=== PATIENT | female | born 1970 | race Caucasian/White ===

== ENCOUNTER 2018-02-11 09:06 | Day surgery (SDC) | payer MEDICAID ==
[2018-02-03 15:25] LABS: BASOPHILS % (AUTO) 0.3 % (0-1); EOSINOPHILS # (AUTO) 0.1 X10'3 (0-0.9); EOSINOPHILS % (AUTO) 1.4 % (0-6); LYMPHOCYTES # (AUTO) 2.2 X10'3 (1.1-4.8); LYMPHOCYTES % (AUTO) 28.5 % (21-51); MEAN CORPUSCULAR HEMOGLOBIN 29.3 PG (27.0-31.0); MEAN CORPUSCULAR HGB CONC 34.7 % (33.0-36.5); MEAN CORPUSCULAR VOLUME 84.6 FL (78-98); MEAN PLATELET VOLUME 8.8 FL (7.4-10.4); MONOCYTES # (AUTO) 0.4 X10'3 (0-0.9); MONOCYTES % (AUTO) 5.1 % (2-12); NEUTROPHILS % (AUTO) 64.7 % (42-75); PRE OP HEMATOCRIT 36.1 % (35.0-45.0); PRE OP HEMOGLOBIN 12.5 g/dL (12.0-16.0); PRE OP PLATELET COUNT 190 X10'3 (140-440); RED BLOOD COUNT 4.27 X10'6 (4.20-5.60); RED CELL DISTRIBUTION WIDTH 12.4 % (11.5-14.5)
[2018-02-03 15:50] LABS: ALBUMIN 3.3 G/DL (3.4-5.0); ALKALINE PHOSPHATASE 96 IU/L (46-116); BLOOD UREA NITROGEN 16 MG/DL (7-18); BUN/CREATININE RATIO 16.7 (6.6-38.0); CALCIUM 8.5 MG/DL (8.5-10.1); CHLORIDE 107 MMOL/L (99-107); CREATININE 0.96 MG/DL (0.40-0.90); PRE OP ALT 23 U/L (30-65); PRE OP ANION GAP 8 (8-16); PRE OP AST 18 U/L (10-37); PRE OP BILIRUB, TOTAL 0.2 MG/DL (0.0-1.0); PRE OP GLUCOSE 100 MG/DL (70-104); PRE OP POTASSIUM 3.8 MMOL/L (3.4-5.1); PRE OP SODIUM 142 MMOL/L (135-145); TOTAL PROTEIN 6.5 G/DL (6.4-8.2); eGFR 62 ML/MIN
[2018-02-11] VITALS (9 sets, daily range): BP systolic 150–172; BP diastolic 78–95
[~2018-02-11] VITALS: Ht 162.6 cm; Wt 107.7 kg
[~2018-02-11 09:06] MED LIST: ALBU18HF2 INH; BECL7.3A INH; CLON0.1T PO; ESCI20TA38 PO; FURO-150 PO; MELO-100 PO; METH54TA12 PO; OXYC-138 PO; PANT-47 PO; TAMO10TA4 PO; clindamycin-Cleocin 900mg/D5W 50 ML IV ONE; famotidine 20mg tablet PO ONE; ringers solution, lacted 1,000 ML IV SCH
[2018-02-11] MEDS ORDERED: sevoflurane 250ml liquid IH ONE (11:16)
[2018-02-11] MEDS ORDERED: ondansetron/PF 4mg/2ml inj ONE (11:16)
[2018-02-11] MEDS ORDERED: midazolam 2 mg/2 ml injection ONE (11:22)
[2018-02-11] MEDS ORDERED: fentaNYL /PF 50mcg/ml 5ml ampule ONE (11:24)
[2018-02-11] MEDS ORDERED: LIDOcaine 2% (20mg/ml) 5ml vial ONE (11:25)
[2018-02-11] MEDS ORDERED: propofol inj 20 ML IV ONE (11:25)
[2018-02-11] MEDS ORDERED: dexamethasone sod phosphate 4mg/ml inj. ONE (11:32)
[2018-02-11] MEDS ORDERED: BUPIVAcaine/PF 2.5mg/ml (0.25%) 10ml vial ONE (11:55)
[2018-02-11] MEDS ORDERED: triamcinolone acetonide 40mg/ml inj ONE (11:55)
[2018-02-11] MEDS ORDERED: ringers solution, lacted 1,000 ML IV SCH (11:58)
[2018-02-11] MEDS ORDERED: proCHLORperazine 10 MG/2 ml inj IV PRN (12:00)
[2018-02-11] MEDS ORDERED: morphine 4 MG/ML inj SYRINge IV PRN ×2 (12:00)
[2018-02-11] MEDS ORDERED: meperidine/PF 25mg/ml syringe IV PRN ×3 (12:00)
[2018-02-11] MEDS ORDERED: ondansetron/PF 4mg/2ml inj IV PRN (12:00)
[2018-02-11] MEDS ORDERED: HYDROcodone/acetaminophen 10/325mg tab PO ONE (12:50)
== END 2018-02-11 13:40 | disposition home or self-care (01) ==
LOC: PAS 09:06
PROVIDERS: ATTEND Orthopaedic Surgery
DX: M23.221 Derangement of posterior horn of medial meniscus due to old tear or injury, right knee (principal); M23.231 Derangement of other medial meniscus due to old tear or injury, right knee; M22.41 Chondromalacia patellae, right knee; M25.861 Other specified joint disorders, right knee; F90.8 Attention-deficit hyperactivity disorder, other type; K21.9 Gastro-esophageal reflux disease without esophagitis; I10 Essential (primary) hypertension; M17.12 Unilateral primary osteoarthritis, left knee; F32.89 Other specified depressive episodes; E66.01 Morbid (severe) obesity due to excess calories; I44.7 Left bundle-branch block, unspecified; J44.9 Chronic obstructive pulmonary disease, unspecified; G89.29 Other chronic pain; Z68.41 Body mass index [BMI] 40.0-44.9, adult; Z91.041 Radiographic dye allergy status; Z88.0 Allergy status to penicillin; Z91.012 Allergy to eggs; Z79.891 Long term (current) use of opiate analgesic; Z88.1 Allergy status to other antibiotic agents; Z88.6 Allergy status to analgesic agent; Z88.5 Allergy status to narcotic agent; Z88.3 Allergy status to other anti-infective agents; Z88.2 Allergy status to sulfonamides; Z90.89 Acquired absence of other organs; Z87.891 Personal history of nicotine dependence; Z91.018 Allergy to other foods; Z91.048 Other nonmedicinal substance allergy status; Z79.899 Other long term (current) drug therapy; Z88.8 Allergy status to other drugs, medicaments and biological substances; Z98.890 Other specified postprocedural states
CPT/HCPCS: 29873; 29880; 36415; 80053; 85025; 85610; 85730; 93005; A6449; J1100; J2001; J2250; J2405; J2704; J3010; J3301; J3490; J7030; J7120; A6250; A7000

== ENCOUNTER 2019-06-01 10:30 | Day surgery (SDC) | payer MEDICAID ==
[2019-05-31 12:12] LABS: BASOPHILS % (AUTO) 0.3 % (0-1); EOSINOPHILS % (AUTO) 0.3 % (0-6); HEMATOCRIT 36.5 % (35.0-45.0); HEMOGLOBIN 12.5 g/dl (12.0-16.0); LYMPHOCYTES # (AUTO) 0.9 X10'3 (1.1-4.8); MEAN CORPUSCULAR HEMOGLOBIN 29.1 PG (27.0-31.0); MEAN CORPUSCULAR HGB CONC 34.2 g/dL (33.0-36.5); MEAN CORPUSCULAR VOLUME 85.2 FL (78-98); MEAN PLATELET VOLUME 7.7 FL (7.4-10.4); MONOCYTES # (AUTO) 0.2 X10'3 (0-0.9); MONOCYTES % (AUTO) 1.9 % (2-12); NEUTROPHILS # (AUTO) 7.5 X10'3 (1.8-7.7); NEUTROPHILS % (AUTO) 87.5 % (42-75); PARTIAL THROMBOPLASTIN TIME 26 SECONDS (22-32); PLATELET COUNT 200 X10'3 (140-440); RED BLOOD COUNT 4.28 X10'6 (4.20-5.60); RED CELL DISTRIBUTION WIDTH 13.6 % (11.5-14.5); WHITE BLOOD COUNT 8.6 X10'3 (4.5-11.0)
[2019-05-31 12:13] LABS: ALANINE AMINOTRANSFERASE 29 U/L (12-78); ALBUMIN 3.5 G/DL (3.4-5.0); ALBUMIN/GLOBULIN RATIO 1.1 (1.1-1.5); ALKALINE PHOSPHATASE 100 IU/L (46-116); ANION GAP 4 (8-16); ASPARTATE AMINO TRANSFERASE 27 U/L (10-37); BILIRUBIN,TOTAL 0.3 MG/DL (0.1-1.0); BLOOD UREA NITROGEN 16 MG/DL (7-18); BUN/CREATININE RATIO 17.6 (6.6-38.0); CALCIUM 8.7 MG/DL (8.5-10.1); CHLORIDE 105 MMOL/L (99-107); CREATININE 0.91 MG/DL (0.40-0.90); GLUCOSE 127 MG/DL (70-104); POTASSIUM 3.5 MMOL/L (3.5-5.1); SODIUM 140 MMOL/L (135-145); TOTAL CARBON DIOXIDE 31.1 MMOL/L (24-32); TOTAL PROTEIN 6.7 G/DL (6.4-8.2); eGFR 66 ML/MIN
[~2019-06-01] VITALS: Ht 162.6 cm; Wt 109.0 kg
[2019-06-01] VITALS (9 sets, daily range): BP systolic 114–136; BP diastolic 64–79
[~2019-06-01 10:30] MED LIST changes: -clindamycin-Cleocin 900mg/D5W 50 ML IV ONE; -famotidine 20mg tablet PO ONE; -ringers solution, lacted 1,000 ML IV SCH
[2019-06-01] MEDS ORDERED: LORazepam 0.5 MG tablet PO PRN (10:50)
[2019-06-01] MEDS ORDERED: normal saline 1,000 ML IV SCH (10:50)
[2019-06-01] MEDS ORDERED: nitroGLYCERIN 0.4mg SUBLingual tab SL PRN ×2 (10:50→13:25)
[2019-06-01] MEDS ORDERED: diphenhydrAMINE 25mg capsule PO PRN (10:50)
[2019-06-01] MEDS ORDERED: methylPREDNISolone sod succ 125mg/2ml vial IV ONE (10:55)
[2019-06-01] MEDS ORDERED: MAGN400T28 PO (11:04)
[2019-06-01] MEDS ORDERED: ESCI10TA PO (11:04)
[2019-06-01] MEDS ORDERED: EPIN0.3P3 (11:04)
[2019-06-01] MEDS ORDERED: OMEG1CAP21 PO (11:04)
[2019-06-01] MEDS ORDERED: DIPH25CA83 PO (11:04)
[2019-06-01] MEDS ORDERED: iohexol 350MG/ML 100ml bottle IV ONE (12:18)
[2019-06-01] MEDS ORDERED: LIDOcaine 1% (10mg/ml)w/preservative injection 20ml MDV ONE (12:18)
[2019-06-01] MEDS ORDERED: midazolam 2 mg/2 ml injection ONE ×2 (12:18→12:44)
[2019-06-01] MEDS ORDERED: fentaNYL/PF 50MCG/1 ML 2ML syringe ONE (12:18)
[2019-06-01] MEDS ORDERED: iohexol 350 MG/ML 50ML vial IV ONE (12:18)
[2019-06-01] MEDS ORDERED: proCHLORperazine 10 MG/2 ml inj IV PRN (13:25)
[2019-06-01] MEDS ORDERED: OXAZEpam 15mg capsule PO PRN (13:25)
[2019-06-01] MEDS ORDERED: normal saline 1000ml 1,000 ML IV SCH (13:25)
[2019-06-01] MEDS ORDERED: ondansetron/PF 4mg/2ml inj IV PRN (13:25)
[2019-06-01] MEDS ORDERED: oxyCODONE IR 5mg (immed. release) tablet PO ONE (16:00)
== END 2019-06-01 19:05 | disposition home or self-care (01) ==
LOC: SSTAY O 10:30
PROVIDERS: ATTEND Internal Medicine Cardiovascular Disease
DX: R94.39 Abnormal result of other cardiovascular function study (principal); I10 Essential (primary) hypertension; E78.5 Hyperlipidemia, unspecified; J44.9 Chronic obstructive pulmonary disease, unspecified; Z79.899 Other long term (current) drug therapy
CPT/HCPCS: 36415; 71046; 80053; 85025; 85610; 85730; 93458; 99152; C1769; J1644; J2001; J2250; J2930; J3010; J7030; Q0163; Q9967; A4620; A6258; C1760

== ENCOUNTER 2025-02-03 11:23 | Emergency (ER) | payer MEDICAID ==
[~2025-02-03] VITALS: Ht 162.6 cm; Wt 109.1 kg
[~2025-02-03 11:23] MED LIST changes: +DIPH25CA83 PO; +EPIN0.3P3; +ESCI10TA PO; -ESCI20TA38 PO; +MAGN400T56 PO; +OMEG1CAP21 PO; +TAMO10TA14 PO; -TAMO10TA4 PO
--- NOTE | 2025-02-03 11:26 | Physician Documentation ---
History of Present Illness General Stated Complaint: CHEST PRESSURE Time Seen by MD: 11:26 Primary Medical Doctor: [facility] History of Present Illness Initial Comments The patient is a 54-year-old female with a history of CHF who presents with a complaint of rapid heart rate and shortness of breath and chest tightness. Patient states around 10 30 she noticed chest tightness and rapid heart rate. She states she does not normally get chest tightness. She states she has a history of CHF and that she has been off her Lasix and her clonidine over the last week. Patient states she has had stress tests in the past. The patient denies any fevers or chills nausea or vomiting she does complain of slight shortness of breath. Patient's symptoms are mild to moderate and persistent. Medication Reconciliation Allergies: Coded Allergies: Iodinated Contrast Media (Verified Allergy, Severe, THROAT SWELLING, 02/03/25) Penicillins (Verified Allergy, Intermediate, RASH, 02/03/25) acetaminophen (Verified Allergy, Intermediate, RASH, 02/03/25) amitriptyline (Verified Allergy, Intermediate, RASH, 02/03/25) animal dander (Verified Allergy, Intermediate, RASH, 02/03/25) baclofen (Verified Allergy, Intermediate, RASH, 02/03/25) cefuroxime (Verified Allergy, Intermediate, 08/18/15) ciprofloxacin (Verified Allergy, Intermediate, RASH, 08/18/15) erythromycin base (Verified Allergy, Intermediate, RASH, 08/18/15) hydrocodone (Verified Allergy, Intermediate, RASH, 08/18/15) ibuprofen (Verified Allergy, Intermediate, RASH, 08/18/15) indomethacin (Verified Allergy, Intermediate, RSH, 08/18/15) sulfamethoxazole (Verified Allergy, Intermediate, RASH, 08/18/15) tramadol (Verified Allergy, Intermediate, RASH, 08/18/15) trazodone (Verified Allergy, Intermediate, RASH, 08/18/15) trimethoprim (Verified Allergy, Intermediate, RASH, 08/18/15) wheat (Verified Allergy, Mild, SORES ON SIDE OF MOUTH, 02/11/18) zolpidem (Verified Adverse Reaction, Severe, AMNESIA, 08/18/15) Uncoded Allergies: CARROTS (Allergy, Intermediate, WHEEEZING, 02/11/18) EGGS (Allergy, Intermediate, SWOLLEN LYMPH NODES, 02/11/18) CHICKEN (Adverse Reaction, Intermediate, SWOLLEN LYMPH NODES, 02/11/18) Scheduled Beclomethasone Dipropionate (Qvar 40 MCG INHALER), 2 PUFFS INH BID, (Reported) Clonidine HCl (Clonidine HCl), 1 TAB PO BID, (Reported) Clonidine HCl (Clonidine HCl), 1 TAB PO Q12H Diphenhydramine Hcl (Benadryl), 1 CAP PO TID, (Reported) Escitalopram Oxalate (Lexapro), 3 TAB PO DAILY, (Reported) Furosemide (Lasix), 1 TAB PO DAILY, (Reported) Furosemide* (Lasix*), 1 TAB PO DAILY Magnesium Oxide (Magnesium Oxide), 1 TAB PO DAILY, (Reported) Meloxicam* (Meloxicam*), 15 MG PO BID, (Reported) Methylphenidate HCl (Methylphenidate ER), 1 TAB PO DAILY, (Reported) Oxycodone HCl/Acetaminophen (Endocet 10-325 mg Tablet), 1 TAB PO TID PRN, (Reported) Pantoprazole Sodium (PROTONIX tablet), 40 MG PO DAILY, (Reported) Tamoxifen Citrate (Tamoxifen Citrate), 20 MG PO DAILY, (Reported) Scheduled PRN Albuterol Sulfate (Ventolin Hfa), 2 PUFFS INH Q4HPRN PRN for SOB or wheezing, (Reported) Epinephrine (Epipen 2-Gideon), for allergies, (Reported) Miscellaneous Medications Malone-3 Fatty Acids/Fish Oil (Malone 3 Fish Oil Softgel), 1 EACH PO, (Reported) Past Medical History Past Medical History: Congestive Heart Failure, Chronic Pain Review of Systems All Other Systems at this time: Reviewed and Negative Physical Exam Physical Exam Physical Exam VITALS: Reviewed and as above. GENERAL: Alert, no apparent distress. HEENT: Normocephalic, atraumatic, PERRL, EOMI, dry mucosa, no erythema RESPIRATORY: Lungs clear, normal breath sounds, no respiratory distress. CHEST: No accessory muscle use, no retractions CV: Tachycardic rate, rhythm, no edema, no murmur, No: JVD GI: Soft, non-tender, bowels sounds present, no rebound, guarding, or rigidity BACK: No CVA tenderness, or swelling MUSCULOSKELETAL: No deformities, no edema SKIN: Warm and dry, no rash NEURO: Oriented x4, No motor or sensory deficit PSYCH: Normal mood and affect, no agitation Progress Results/Orders Results/Orders Orders - OHHUSSAIN SANTOS MD Chest,Single View (02/03/25 11:32) Monitor (02/03/25 11:26) Saline Lock (02/03/25 11:26) Oxygen (02/03/25 11:26) Completed Orders - HUSSAIN LYONS MD Chest,Single View (02/03/25 11:32) Cbc/Diff (02/03/25 11:26) BMP (02/03/25 11:26) PBNP (02/03/25 11:26) Electrocardiogram (02/03/25 11:26) Hs Troponin I W Calculations (02/03/25 11:26) Hs Troponin I W Calculations (02/03/25 13:26) Drug Screen, Urine (02/03/25 13:30) Furosemide Inj (Lasix Inj) (02/03/25 14:15) Clonidine Tablet (Catapres Tablet) (02/03/25 14:15) Medications Received in ER Medications (Trade) Dose Ordered Sig/Shakeel Route PRN Reason Start Time Stop Time Status Last Admin Dose Admin (Lasix inj) 20 mg ONCE ONCE IV 02/03/25 14:15 02/03/25 14:16 DC 02/03/25 14:28 20 MG (Catapres tablet) 0.1 mg ONCE ONCE PO 02/03/25 14:15 02/03/25 14:16 DC 02/03/25 14:28 0.1 MG Vital Signs 02/03/25 02/03/25 02/03/25 02/03/25 11:23 11:42 12:11 14:08 Pulse 107 113 97 Resp 28 14 13 B/P (MAP) 175/94 130/70 (90) 124/74 (91) Pulse Ox 98 98 99 O2 Flow Rate 0 0 0 Laboratory Tests Test 02/03/25 11:35 02/03/25 11:55 02/03/25 13:30 White Blood Count 10.7 Red Blood Count 5.03 Hemoglobin 14.5 Hematocrit 42.0 Mean Corpuscular Volume 83.5 Mean Corpuscular Hemoglobin 28.8 Mean Corpuscular Hemoglobin Concent 34.5 Red Cell Distribution Width 13.9 Platelet Count 230 Mean Platelet Volume 8.1 Neutrophils (%) (Auto) 62.5 Lymphocytes (%) (Auto) 29.1 Monocytes (%) (Auto) 4.3 Eosinophils (%) (Auto) 3.6 Basophils (%) (Auto) 0.5 Neutrophils # (Auto) 6.7 Lymphocytes # (Auto) 3.1 Monocytes # (Auto) 0.5 Eosinophils # (Auto) 0.4 Basophils # (Auto) 0.1 CBC Comment Sodium Level 136 Potassium Level 3.5 Chloride Level 99 Carbon Dioxide Level 28.9 Anion Gap 8 Blood Urea Nitrogen 8 Creatinine 1.01 H Estimated GFR/1.73 m2 57 BUN/Creatinine Ratio 7.9 L Glucose Level 213 H Calcium Level 9.6 Troponin I High Sensitivity 9 9 Pro-B-Type Natriuretic Peptide 192 H Albumin 3.9 Chemistry Comments Urine Opiates Screen Negative Urine Methadone Screen Negative Urine Fentanyl Screen Negative Urine Barbiturates Screen Negative Urine Phencyclidine Screen Negative Urine Amphetamines Screen Negative Urine Benzodiazepines Screen Negative Urine Cocaine Screen Negative Urine Cannabinoids Screen Positive Drug Screen Comment Troponin I High Sens Percent Delta 0 Troponin I Hi Sens Absolute Change 0 EKG/XRAY/CT/US/VASC/MRI EKG : Additional Comment The patient's EKG was interpreted by myself and shows left axis deviation shows a sinus tach at a rate of 104 with left bundle-branch block and nonspecific ST abnormalities the EKGs interpreted as an abnormal EKG. Time of the EKG was 11 30 am Chest X-Ray : Additional Comments Patient: WES DARBY Medical Record: [id number] JOSEPH LONDON : 1970, Age: 54 Sex: Female Location: ER Patient Status: REG ER Service Date/Time: 02/03/251131 Ordering Physician: HUSSAIN LYONS MD Exam: CHEST,SINGLE VIEW DI CHEST,SINGLE VIEW, HISTORY: CP COMPARISON: None None TECHNICAL DATA: 1 view of the chest was obtained. FINDINGS: Lines and tubes: None Cardiomediastinal silhouette: normal Pulmonary vasculature: normal Lung expansion: normal Lung airspace: normal Lung interstitium: normal Pleura: normal Pneumothorax: no Bones: Unremarkable Other: no IMPRESSION: No acute intrathoracic abnormality. Electronically Signed by:CHEMO JONES MD Date & Time: 02/03/251202 Dictated by: CHEMO JONES MD Dictation date and time: 02/03/25 120 Primary Care Provider: NO PRIMARY CARE PROVIDER cc: HUSSAIN LYONS MD ~ Medical Decision Making Findings The patient's EKG was interpreted as a sinus tachycardia rate of 104 for with a left bundle branch block the patient's axis is left axis and there was nonspecific ST abnormalities impression is an abnormal EKG time of the EKG was 11 30. The patient's chest x-ray was interpreted by me as showing a normal cardiac silhouette normal mediastinum and normal-appearing lung oliveira and I interpreted the chest x-ray as being normal I have also reviewed the radiologist's impressions I have reviewed the previous hospitalizations I have reviewed the patient's labs I have interpreted the EKG the bedside monitor was interpreted as a sinus tachycardia and her pulse oximetry was interpreted as no rmal and adequate the patient has a benign exam. The patient will be discharged she will be placed back on her clonidine as well as her Lasix she has been advised to return for worsening of her symptoms. Her serial troponins were negative Departure Time of Disposition: 15:36 Disposition: 01 HOME / SELF CARE / HOMELESS Impression: Primary Impression: Tachycardia Discharge Instructions: Nonspecific Chest Pain, Adult Additional Instructions: You have prescriptions that has been sent to [facility] take her medicine as prescribed return for worsening of your symptoms follow up with her healthcare providers soon as possible Referrals: NO PRIMARY CARE PROVIDER (PCP) Prescriptions Clonidine HCl (Clonidine HCl) 0.2 Mg Tablet 1 TAB PO Q12H for 30 Days, #60 TAB 0 Refills Prov: HUSSAIN LYONS MD 02/03/25 Furosemide* (Lasix*) 20 Mg Tablet 1 TAB PO DAILY for 30 Days, #30 TAB Prov: HUSSAIN LYONS MD 02/03/25 Signature Scribe Signature: no scribe Attestation: The note accurately reflects work and decisions made by me.Hussain Lyons MD 02/03/25 15:36 HUSSAIN LYONS MD Feb 03, 2025 11:26
--- NOTE | 2025-02-03 11:32 | ELECTROCARDIOGRAPH REPORT ---
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
--- NOTE | 2025-02-03 12:05 | RADIOLOGY REPORT ---
DI CHEST,SINGLE VIEW, HISTORY: CP COMPARISON: None None TECHNICAL DATA: 1 view of the chest was obtained. FINDINGS: Lines and tubes: None Cardiomediastinal silhouette: normal Pulmonary vasculature: normal Lung expansion: normal Lung airspace: normal Lung interstitium: normal Pleura: normal Pneumothorax: no Bones: Unremarkable Other: no IMPRESSION: No acute intrathoracic abnormality.
[2025-02-03 12:09] LABS: MEAN PLATELET VOLUME 8.1 FL (7.4-10.4); RED CELL DISTRIBUTION WIDTH 13.9 % (11.5-14.5)
[2025-02-03 12:28] LABS: CREATININE 1.01 MG/DL (0.40-0.90); PRO BRAIN NATRIURETIC PEPTIDE 192 PG/ML (0-125); TOTAL CARBON DIOXIDE 28.9 MMOL/L (24-32); eCRCL 55 ML/MIN; eGFR 57 ML/MIN
[2025-02-03] MEDS: furosemide 10 MG/1 ML 10ml inj IV ONE (14:28)
[2025-02-03 15:27] LABS: URINE AMPHETAMINE SCREEN NEGATIVE (Neg); URINE BARBITUATE SCREEN NEGATIVE (Neg); URINE BENZODIAZEPINES SCREEN NEGATIVE (Neg); URINE CANNABINOID SCREEN POSITIVE (Neg); URINE COCAINE SCREEN NEGATIVE (Neg); URINE METHADONE SCREEN NEGATIVE (Neg); URINE OPIATE SCREEN NEGATIVE (Neg); URINE PHENCYCLIDINE SCREEN NEGATIVE (Neg)
[2025-02-03] MEDS ORDERED: CLON0.2T PO (15:33)
[2025-02-03] MEDS ORDERED: FURO-150 PO (15:33)
[2025-02-03 15:43] VITALS: BP 125/78; PULSE 97; RESP 18; O2SAT 99
== END 2025-02-03 16:04 | disposition home or self-care (01) ==
LOC: ER 11:23
DX: R00.0 Tachycardia, unspecified (principal); I50.9 Heart failure, unspecified; Z88.0 Allergy status to penicillin; Z88.1 Allergy status to other antibiotic agents; Z88.6 Allergy status to analgesic agent; Z88.5 Allergy status to narcotic agent; Z88.2 Allergy status to sulfonamides; Z88.8 Allergy status to other drugs, medicaments and biological substances; Z91.041 Radiographic dye allergy status; Z95.0 Presence of cardiac pacemaker; Z79.899 Other long term (current) drug therapy
CPT/HCPCS: 36415; 71045; 80048; 80305; 83880; 84484; 85025; 93005; 96374; 99285; J1938